=== PATIENT | female | born 1995 | race Hispanic/Latino ===

== ENCOUNTER 2018-09-05 22:16 | Emergency (ER) | payer BC ==
[2018-09-05] MEDS ORDERED: ONDANSETRON 4 MG/2 ML VIAL ONE (23:00)
[2018-09-05] MEDS ORDERED: KETOROLAC 30 MG/ML INJ ONE (23:00)
[2018-09-05] MEDS ORDERED: NA CHLORIDE 0.9% 1,000 ML ONE (23:00)
[2018-09-05 23:16] LABS: Absolute Lymphocytes (CBC) 0.9 K/uL (0.7-4.9); Basophils % 0.4 % (0-1.3); Hematocrit 41.2 % (36.0-45.0); Lymphocytes % 6.2 % (15.3-44.8); MPV 8.5 fL (7.6-11.3); RBC Red Blood Cell Count 4.84 M/uL (3.86-4.86)
[2018-09-05 23:40] LABS: ALT/SGPT 41 U/L (12-78); AST/SGOT 25 U/L (15-37); Albumin 3.9 g/dL (3.4-5.0); Alkaline Phosphatase 129 U/L (45-117); BUN Blood Urea Nitrogen 16 mg/dL (7-18); Bicarbonate 22 mmol/L (21-32); Bilirubin Direct < 0.1 mg/dL (0-0.2); Bilirubin Total 0.4 mg/dL (0.2-1.0); Glucose Level 113 mg/dL (74-106); Protein, Total 8.2 g/dL (6.4-8.2); Sodium Level 141 mmol/L (136-145)
[2018-09-05 23:43] LABS: Urine Bacteria <20 /HPF (<20); Urine Culture Reflex Order NOT NEEDED
[2018-09-06] MEDS ORDERED: MAGNESIUM SULFATE 1 gm IVPB 1 GM/100 ML BAG IV ONE (00:22)
[2018-09-06] MEDS ORDERED: CEFTRIAXONE 1000 MG/VIAL ONE (00:22)
[2018-09-06] MEDS ORDERED: TAMSULOSIN 0.4 MG SR CAP ONE (00:22)
[2018-09-06 00:24] LABS: Blood Morphology Comment NOT SEEN (NOT SEEN); Platelet Estimate ADEQ
--- NOTE | 2018-09-06 00:56 | EDPHYS ---
Physician Documentation [facility] Name: Nelly Brink Age: 23 yrs Sex: Female : 1995 Arrival Date: 09/05/2018 Time: 22:19 Bed 15 Private MD: ED Physician Bran Tubbs HPI: 09/05 22:42 This 23 yrs old Female presents to ER via Ambulatory with complaints of Back cp Pain, Vomiting. 22:42 The patient complains of pain in the right low back. The pain does not radiate. Onset: cp The symptoms/episode began/occurred this morning. Associated signs and symptoms: Pertinent positives: nausea, vomiting, Pertinent negatives: diarrhea, dysuria, fever, hematuria, pain radiating to the lower extremities. Severity of pain: in the emergency department the pain is unchanged despite home interventions. 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 - Social history:: Smoking status: Patient/guardian denies using tobacco. - Ebola Screening: : No symptoms or risks identified at this time. ROS: 22:50 Constitutional: Negative for body aches, chills, fever, poor PO intake. cp 22:50 Eyes: Negative for injury, pain, redness, and discharge. cp 22:50 Cardiovascular: Negative for chest pain, edema, palpitations. 22:50 Respiratory: Negative for cough, shortness of breath, wheezing. 22:50 Abdomen/GI: Positive for nausea, Negative for vomiting, diarrhea, constipation, black/tarry stool, rectal bleeding. 22:50 Back: Positive for flank pain, on the right, Negative for injury or acute deformity, decreased range of motion. 22:50 : Negative for urinary symptoms, vaginal bleeding. 22:50 Neuro: Negative for altered mental status, headache, weakness. 22:50 All other systems are negative. Exam: 22:55 Constitutional: The patient appears in no acute distress, alert, awake, non-toxic, well cp developed, well nourished, uncomfortable. 22:55 Head/Face: Normocephalic, atraumatic. cp 22:55 Eyes: Periorbital structures: appear normal, Conjunctiva: normal, no exudate, no cp injection, Sclera: no appreciated abnormality, Lids and lashes: appear normal, bilaterally. 22:55 ENT: External ear(s): are unremarkable, Nose: is normal, Mouth: Lips: moist, Oral mucosa: pink and intact, moist, Posterior pharynx: is normal, airway is patent, no erythema, no exudate. 22:55 Chest/axilla: Inspection: normal, Palpation: is normal, no crepitus, no tenderness. 22:55 Cardiovascular: Rate: normal, Rhythm: regular, Edema: is not appreciated, JVD: is not appreciated. 22:55 Respiratory: the patient does not display signs of respiratory distress, Respirations: normal, no use of accessory muscles, no retractions, no splinting, no tachypnea, labored breathing, is not present, Breath sounds: are clear throughout, no decreased breath sounds, no stridor, no wheezing. 22:55 Abdomen/GI: Inspection: abdomen appears normal, Bowel sounds: active, all quadrants, Palpation: abdomen is soft and non-tender, in all quadrants. 22:55 Back: pain, that is moderate, of the right low back. 22:55 Skin: no rash present. 22:55 Neuro: Orientation: to person, place \T\ time. Mentation: is normal, Motor: moves all cp fours, strength is normal. Vital Signs: 22:25 BP 136 / 92; Pulse 63; Resp 18; Temp 97.5(O); Pulse Ox 99% on R/A; Weight 68.04 kg (R); ak1 Height 5 ft. 1 in. (154.94 cm) (R); Pain 10/10; 23:39 BP 123 / 85; Pulse 64; Resp 16; Temp 98.1(O); Pulse Ox 99% on R/A; Pain 2/10; ak1 09/06 00:17 BP 115 / 83; Pulse 65; Resp 14; Temp 98(O); Pulse Ox 99% on R/A; Pain 2/10; ak1 09/05 22:25 Body Mass Index 28.34 (68.04 kg, 154.94 cm) ak1 MDM: 09/05 22:22 Patient medically screened. 23:00 Differential diagnosis: nephrolithiasis, pyelonephritis, UTI, appendicitis, ovarian cp cyst, ovarian torsion. 09/06 00:15 Data reviewed: vital signs, nurses notes, lab test result(s), radiologic studies, CT cp scan. Response to treatment: the patient's symptoms have markedly improved after treatment, Pain markedly improved. No vomiting observed in ED, and as a result, I will discharge patient. 09/05 22:42 Order name: Basic Metabolic Panel 09/05 22:42 Order name: CBC with Diff 09/05 23:09 Order name: Urine Dipstick--Ancillary (enter results) [facility] 09/05 23:09 Order name: Urine --Ancillary (enter results) [facility] 09/05 23:12 Order name: Basic Metabolic Panel; Complete Time: 00:01 [facility] 09/06 00:01 Interpretation: Normal except: CL 109; GLUC 113; GFR 66. 09/05 23:12 Order name: Liver (Hepatic) Function; Complete Time: 00:01 [facility] 09/05 23:12 Order name: Creatinine (Radiology Only) [facility] 09/05 23:12 Order name: CBC with Automated Diff [facility] 09/06 00:02 Interpretation: Normal except: WBC 14.7; RDW 16.4; VICKI% 91.4; LYM% 6.2; MN% 2.0; NEUT A cp 13.4. 09/05 23:13 Order name: Urine Microscopic Only; Complete Time: 00:01 [facility] 09/05 23:19 Order name: Manual Differential [facility] 09/05 22:42 Order name: IV Saline Lock; Complete Time: 23:06 09/05 22:42 Order name: Labs collected and sent; Complete Time: 23:06 09/05 22:42 Order name: Urine Dipstick-Ancillary (obtain specimen); Complete Time: 23:06 09/05 22:42 Order name: Urine Test (obtain specimen); Complete Time: 23:06 09/05 22:58 Order name: Stone Protocol [facility] 09/06 00:05 Order name: PO challenge; Complete Time: 00:15 cp Administered Medications: 09/05 23:05 Drug: NS 0.9% 1000 ml Route: IV; Rate: 1 bolus; Site: right antecubital; ak1 09/06 00:15 Follow up: IV Status: Completed infusion; IV Intake: 1000ml ak1 09/05 23:05 Drug: Zofran 4 mg Route: IVP; Site: right antecubital; ak1 23:39 Follow up: Response: No adverse reaction; Nausea is decreased ak1 23:08 Drug: TORadol 30 mg Route: IVP; Site: right antecubital; ak1 23:39 Follow up: Response: No adverse reaction; Pain is decreased ak1 09/06 00:16 Drug: Magnesium Sulfate 1 grams Route: IVPB; Infused Over: 30 mins; Site: right ak1 antecubital; 00:51 Follow up: IV Status: Completed infusion; IV Intake: 100ml ak1 00:16 Drug: Flomax 0.4 mg Route: PO; ak1 00:16 Follow up: Response: No adverse reaction ak1 00:16 Drug: Rocephin 1 grams Route: IV; Rate: bolus; Site: right antecubital; ak1 00:18 Follow up: IV Status: Completed infusion; IV Intake: 10ml ak1 Disposition: 09:34 Co-signature as Attending Physician, Bran Tubbs MD I agree with the assessment and wa plan of care. Disposition: 09/06/18 00:18 Discharged to Home. Impression: Calculus of ureter - right, 4 mm. - Condition is Stable. - Discharge Instructions: Kidney Stones. - Prescriptions for Tylenol- Codeine #3 300-30 mg Oral Tablet - take 2 tablets by ORAL route every 8 hours As needed; 20 tablet. Zofran 4 mg Oral Tablet - take 1 tablet by ORAL route every 12 hours As needed; 20 tablet. Flomax 0.4 mg Oral Capsule, Sust. Release 24 hr - take 1 capsule by ORAL route once daily As needed 1/2 hour following the same meal each day; 5 capsule. Cipro 500 mg Oral Tablet - take 1 tablet by ORAL route every 12 hours for 7 days; 14 tablet. - Family Work Release, Medication Reconciliation Form, Thank You Letter, Antibiotic Education, Prescription Opioid Use form. - Follow up: Melissa Bhardwaj MD; When: 1 - 2 days; Reason: pain and symptoms continue. Follow up: Melissa Bhardwaj MD; When: 2 - 3 days; Reason: pain and symptoms continue. - Problem is new. - Symptoms have improved. Signatures: Dispatcher [employer] Emilee Keyes RN RN ak1 Ras Gonzalez PA PA cp Appiah, William, MD MD wa Corrections: (The following items were deleted from the chart) 00:53 00:18 09/06/2018 00:18 Discharged to Home. Impression: Calculus of ureter - right, 4 ak1 mm. Condition is Stable. Forms are Medication Reconciliation Form, Thank You Letter, Antibiotic Education, Prescription Opioid Use. Follow up: Melissa Bhardwaj; When: 2 - 3 days; Reason: pain and symptoms continue. Problem is new. Symptoms have improved. cp
--- NOTE | 2018-09-06 00:56 | ER ---
Nurse's Notes [facility] Name: Nelly Brink Age: 23 yrs Sex: Female : 1995 Arrival Date: 09/05/2018 Time: 22:19 Bed 15 Private MD: Diagnosis: Calculus of ureter-right, 4 mm Presentation: 09/05 22:26 Presenting complaint: Patient states: right flank, right lower back pain with ak1 constipation. pt stated last BM at noon. pt states hx constipation. pt stated the pain started today. pt stated she vomited twice today. Transition of care: patient was not received from another setting of care. Onset of symptoms was September 05, 2018. Risk Assessment: Do you want to hurt yourself or someone else? Patient reports no desire to harm self or others. Initial Sepsis Screen: Does the patient meet any 2 criteria? No. Patient's initial sepsis screen is negative. Does the patient have a suspected source of infection? No. Patient's initial sepsis screen is negative. Care prior to arrival: tylenol at 1800 and OTC stool softner. 22:26 Acuity: CHRISTINE 3 ak1 22:26 Method Of Arrival: Ambulatory ak1 Triage Assessment: 22:29 General: Appears in no apparent distress. uncomfortable, Behavior is calm, cooperative. ak1 Pain: Complains of pain in back. EENT: No signs and/or symptoms were reported regarding the EENT system. Neuro: No deficits noted. Cardiovascular: No deficits noted. Respiratory: No deficits noted. GI: Abdomen is round non-distended, Bowel sounds present X 4 quads. Abd is soft and non tender X 4 quads. Reports constipation, vomiting, vomited twice today. : No signs and/or symptoms were reported regarding the genitourinary system. Derm: No signs and/or symptoms reported regarding the dermatologic system. Musculoskeletal: Range of motion: intact in all extremities. 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 - Social history:: Smoking status: Patient/guardian denies using tobacco. - Ebola Screening: : No symptoms or risks identified at this time. Screenin:30 Abuse screen: Denies threats or abuse. Denies injuries from another. Nutritional ak1 screening: No deficits noted. Tuberculosis screening: No symptoms or risk factors identified. Fall Risk None identified. Assessment: 23:08 Reassessment: Patient appears in no apparent distress at this time. No changes from ak1 previously documented assessment. Patient and/or family updated on plan of care and expected duration. Pain level reassessed. Patient is alert, oriented x 3, equal unlabored respirations, skin warm/dry/pink. see triage assessment. General: Appears in no apparent distress. 23:40 Reassessment: Patient appears in no apparent distress at this time. Patient states ak1 feeling better. Patient states symptoms have improved. GI: Abdomen is round non-distended, Patient currently denies nausea, pain. 09/06 00:17 General: Appears in no apparent distress. Behavior is calm, cooperative, pt informed of ak1 wait for IV infusion and follow up instructions for Urology. . Vital Signs: 09/05 22:25 BP 136 / 92; Pulse 63; Resp 18; Temp 97.5(O); Pulse Ox 99% on R/A; Weight 68.04 kg (R); ak1 Height 5 ft. 1 in. (154.94 cm) (R); Pain 10/10; 23:39 BP 123 / 85; Pulse 64; Resp 16; Temp 98.1(O); Pulse Ox 99% on R/A; Pain 2/10; ak1 09/06 00:17 BP 115 / 83; Pulse 65; Resp 14; Temp 98(O); Pulse Ox 99% on R/A; Pain 2/10; ak1 09/05 22:25 Body Mass Index 28.34 (68.04 kg, 154.94 cm) ak1 ED Course: 09/05 22:19 Patient arrived in ED. do 22:20 Ras Gonzalez PA is PHCP. cp 22:21 Bran Tubbs MD is Attending Physician. cp 22:25 Emilee Campbell, HUI is Primary Nurse. ak1 22:28 Triage completed. ak1 22:29 Arm band placed on Patient placed in an exam room, on a stretcher, on pulse oximetry, ak1 Patient notified of wait time. 22:31 Patient has correct armband on for positive identification. Bed in low position. Call ak1 light in reach. Side rails up X 1. Pulse ox on. NIBP on. 23:09 Initial lab(s) drawn, by me, sent to lab. Urine collected: clean catch specimen. ak1 Inserted saline lock: 20 gauge in right antecubital area, using aseptic technique. Blood collected. 23:33 Stone Protocol In Process Unspecified. EDMS 09/06 00:17 Melissa Bhardwaj MD is Referral Physician. cp 00:17 Referral Physician role handed off by Melissa Bhardwaj MD cp 00:17 Melissa Bhardwaj MD is Referral Physician. cp 00:18 No provider procedures requiring assistance completed. ak1 00:52 IV discontinued, intact, bleeding controlled, No redness/swelling at site. Pressure ak1 dressing applied. Administered Medications: 09/05 23:05 Drug: NS 0.9% 1000 ml Route: IV; Rate: 1 bolus; Site: right antecubital; ak1 09/06 00:15 Follow up: IV Status: Completed infusion; IV Intake: 1000ml ak1 09/05 23:05 Drug: Zofran 4 mg Route: IVP; Site: right antecubital; ak1 23:39 Follow up: Response: No adverse reaction; Nausea is decreased ak1 23:08 Drug: TORadol 30 mg Route: IVP; Site: right antecubital; ak1 23:39 Follow up: Response: No adverse reaction; Pain is decreased ak1 09/06 00:16 Drug: Magnesium Sulfate 1 grams Route: IVPB; Infused Over: 30 mins; Site: right ak1 antecubital; 00:51 Follow up: IV Status: Completed infusion; IV Intake: 100ml ak1 00:16 Drug: Flomax 0.4 mg Route: PO; ak1 00:16 Follow up: Response: No adverse reaction ak1 00:16 Drug: Rocephin 1 grams Route: IV; Rate: bolus; Site: right antecubital; ak1 00:18 Follow up: IV Status: Completed infusion; IV Intake: 10ml ak1 Intake: 00:15 IV: 1000ml; Total: 1000ml. ak1 00:18 IV: 10ml; Total: 1010ml. ak1 00:51 IV: 100ml; Total: 1110ml. ak1 Outcome: 00:18 Discharge ordered by . cp 00:19 Condition: improved ak1 00:52 Discharged to home ambulatory, with family. ak1 00:52 Discharge instructions given to patient, Instructed on discharge instructions, follow up and referral plans. no drinking with medication, no driving heavy equipment, medication usage, safe sex practices, control, Demonstrated understanding of instructions, follow-up care, medications, Prescriptions given X 4. 00:53 Patient left the ED. ak1 Signatures: Dispatcher [employer] EDEmilee Merrill RN RN ak1 Ras Gonzalez PA PA cp Ogletree, Danielle do
[2018-09-06 01:04] LABS: Urine Blood 2+ (NEG); Urine Glucose NEGATIVE (NEG); Urine Protein 3+ (NEG); Urine Specific Gravity >1.030 (1.005-1.030); Urine pH 5.5 (5.0-7.0)
--- NOTE | 2018-09-06 10:52 | RAD REPORT ---
EXAM DESCRIPTION: CT ABDOMEN PELVIS WITHOUT IV CONTRAST CLINICAL HISTORY: Right flank pain. COMPARISON: None. TECHNIQUE: CT scan of the abdomen and pelvis was performed without IV contrast. This exam was perfor med according to our departmental dose-optimization program, which includes automated exposure contro l, adjustment of the mA and/or kV according to patient size and/or use of iterative reconstruction te chnique. FINDINGS: The lung bases are clear. No pleural or pericardial effusions. There is no hiatal hernia. There is a 4 mm obstructing stone at the right UVJ with mild right hydroureter and hydronephrosis. Ri ght-sided inflammatory stranding is also present. The liver, gallbladder, spleen, pancreas, adrenal glands, and left kidney are unremarkable. The uteru s and ovaries are unremarkable. No small bowel obstruction. The appendix is normal. There is no evidence of diverticulitis. No intrap eritoneal free fluid or free air is identified. The aorta is normal caliber. No acute bony findings are seen. No pathologic body wall hernia is seen. IMPRESSION: 4 mm obstructing stone at the right UVJ with mild right hydronephrosis. Electronically signed by: Shashank Soliz MD 09/05/2018 11:45 PM CDT Due to temporary technical issues with the PACS/Fluency reporting system, reports are being signed by the in house radiologist as a courtesy to ensure prompt reporting. The interpreting radiologist is f ully responsible for the content of the report.
== END 2018-09-06 00:53 | disposition home or self-care (01) ==
LOC: ER 22:16
DX: N20.1 Calculus of ureter (principal)
CPT/HCPCS: 36415; 74176; 76377; 80048; 80076; 81003; 81015; 81025; 85025; 96361; 96365; 96375; 99284; J2405; J3475; J7030